=== PATIENT | female | born 1970 | race Caucasian/White ===

== ENCOUNTER 2016-10-01 20:36 | Emergency (ER) | payer OTHER ==
[~2016-10-01] VITALS: Ht 162.5 cm; Wt 145.1 kg
[2016-10-01] MEDS ORDERED: NEURONTIN300 MG PO ×2 (20:45→20:46)
[2016-10-01] MEDS ORDERED: LISINOPRIL5 MG PO (20:45)
[2016-10-01] MEDS ORDERED: LANTUS100 U/ML SC (20:46)
[2016-10-01] MEDS ORDERED: SIMVASTATIN10 MG PO (20:46)
[2016-10-01] MEDS ORDERED: NOVOLIN 70100 UNIT/1 SQ (20:47)
[2016-10-01 21:21] LABS: BASO % 0.2 % (0.0-1.0); EOS % 0.1 % (1.0-4.0); HEMATOCRIT 40.7 % (37.0-47.0); HEMOGLOBIN 13.4 g/dl (12.0-16.0); IG # 0.1 10*3/uL (0.0-0.1); LYMPH # 1.8 10*3/uL (1.3-4.4); LYMPH % 10.6 % (27.0-41.0); MEAN CELL VOLUME 83.1 fl (81.0-99.0); MEAN CORPUSCULAR HGB 27.3 pg (27.0-31.0); MEAN CORPUSCULAR HGB CONC 32.9 g/dl (33.0-37.0); MEAN PLATELET VOLUME 10.8 fl (9.6-12.3); MONO # 0.9 10*3/uL (0.1-1.0); MONO % 5.2 % (3.0-9.0); NEUT # 14.3 10*3/uL (2.3-7.9); NEUT % 83.3 % (47.0-73.0); PLATELET COUNT AUTOMATED 221 10*3/uL (130-400); RED CELL DISTRI WIDTH 14.9 % (0-14.5); WHITE BLOOD COUNT 17.2 10*3/uL (4.8-10.8)
[2016-10-01 21:32] LABS: BUN 10 mg/dl (7-24); CARBON DIOXIDE 26 mmol/L (21-32); CHLORIDE 97 mmol/L (98-107); EST GLOM FILT AFRICAN AMERICAN > 60 ml/min; GLUCOSE 309 mg/dL (65-99); POTASSIUM 3.8 mmol/L (3.5-5.1); SODIUM 133 mmol/L (136-145)
[2016-10-01] MEDS ORDERED: OMNICEF300 MG PO (23:23)
[2016-10-01] MEDS ORDERED: HYDROCODONE BIT1 T11 PO (23:23)
[2016-10-01] MEDS ORDERED: Motrin,Rufen800 MG PO (23:23)
== END 2016-10-02 00:08 | disposition home or self-care (01) ==
LOC: ED 20:36
PROVIDERS: Emergency Medicine Emergency Medical Services
DX: H66.93 Otitis media, unspecified, bilateral (principal); L03.116 Cellulitis of left lower limb; M54.2 Cervicalgia; M54.9 Dorsalgia, unspecified; M25.551 Pain in right hip; Z79.899 Other long term (current) drug therapy